=== PATIENT | male | born 1975 | race Caucasian/White ===

== ENCOUNTER 2021-03-22 16:21 | Emergency (ER) | payer OTHER ==
[~2021-03-22 16:21] MED LIST: CAPOZIDE 25/15 T1 EA PO; CELEXA40 MG PO; ELAVIL 25 MG TA25 MG PO; KEFLEX500 MG PO; NEURONTIN 300300 MG PO; NORCO 10-325 T1 EACH PO; PERCOCET 7.5-31 EACH PO; PRILOSEC OTC20 MG PO; RELAFEN 750 MG750 MG PO; SINGULAIR10 MG PO; ZESTRIL5 MG PO; ZYRTEC10 M3 PO
== END 2021-03-22 19:25 | disposition home or self-care (01) ==
LOC: ER1 16:21
DX: M54.5 Low back pain (principal); M25.561 Pain in right knee; F17.200 Nicotine dependence, unspecified, uncomplicated; R10.9 Unspecified abdominal pain; V49.40XA Driver injured in collision with unspecified motor vehicles in traffic accident, initial encounter; Y92.410 Unspecified street and highway as the place of occurrence of the external cause
CPT/HCPCS: 72131; 73110; 73564; 99284

== ENCOUNTER → 2021-10-06 | Outpatient (CLI) | payer OTHER | LOC: KOH-I 10-05 13:30 | DX: E04.2 Nontoxic multinodular goiter (principal) | CPT/HCPCS: 76536 ==

== ENCOUNTER → 2021-11-13 | Day surgery (SDC) | payer OTHER ==
[~2021-11-13] MED LIST changes: +HYDROCODONE-AC1 EAC1 PO; +ZANAFLEX 4 MG TA4 MG PO
== END | disposition home or self-care (01) ==
LOC: OR 05:24
DX: T85.193A Other mechanical complication of implanted electronic neurostimulator, generator, initial encounter (principal); G89.29 Other chronic pain; M54.9 Dorsalgia, unspecified; M43.26 Fusion of spine, lumbar region; M54.16 Radiculopathy, lumbar region; M54.50 Low back pain, unspecified; M96.1 Postlaminectomy syndrome, not elsewhere classified; J45.909 Unspecified asthma, uncomplicated; K21.9 Gastro-esophageal reflux disease without esophagitis; I82.402 Acute embolism and thrombosis of unspecified deep veins of left lower extremity; F32.A Depression, unspecified; E07.9 Disorder of thyroid, unspecified; Z88.8 Allergy status to other drugs, medicaments and biological substances; Z79.891 Long term (current) use of opiate analgesic; Z79.899 Other long term (current) drug therapy
CPT/HCPCS: 72100; 76000; C1787; C1820; J0690; J1100; J1170; J2001; J2405; J2704; J2710; J3010; J7030; J7120